=== PATIENT | female | born 1980 | race Hispanic/Latino ===

== ENCOUNTER 2019-09-03 20:35 | Inpatient (IN) | payer OTHER ==
[~2019-09-03] VITALS: Ht 165.1 cm; Wt 103.9 kg
[2019-09-03] MEDS ORDERED: MORPHINE SULFATE 2 MG/ML SYR 1ML IV STA (20:39)
[2019-09-03] MEDS ORDERED: PANTOPRAZOLE 40 MG 10ML VIAL IV STA (20:39)
[2019-09-03] MEDS ORDERED: ONDANSETRON HCL INJ 2MG/ML 2ML 2 MG/ML VIAL IV STA (20:39)
[2019-09-03] MEDS ORDERED: PIPER-TAZ 3.375 GM 50 ML IV STA (20:39)
[2019-09-03] MEDS ORDERED: SODIUM CHLORIDE 0.9% 1000ML 1,000 ML IV ONE (20:45)
[2019-09-03 21:09] LABS: BASOPHILS % 0.2 % (0.0-1.0); EOSINOPHILS % 0.1 % (0.0-6.0); HEMATOCRIT 41.1 % (34.2-44.1); HEMOGLOBIN 13.9 g/dL (12.0-16.0); LYMPHOCYTES # (AUTO) 1.1 (1.0-3.2); LYMPHOCYTES % 12.5 % (18.0-39.1); MEAN CORPUSCULAR HEMOGLOBIN 29.1 pg (28-32); MEAN CORPUSCULAR HGB CONC 33.8 g/dL (31-35); MEAN CORPUSCULAR VOLUME 86.2 fL (81-99); MONOCYTES # (AUTO) 0.6 (0.2-0.8); MONOCYTES % 6.8 % (4.4-11.3); NEUTROPHILS # (AUTO) 6.7 (2.1-6.9); PLATELET COUNT 237 x10e3/uL (140-360); RED BLOOD COUNT 4.77 x10e6/uL (3.6-5.1); RED CELL DISTRIBUTION WIDTH 13.2 % (11.7-14.4)
[2019-09-03 21:15] LABS: CLARITY,URINE CLEAR (CLEAR); COLOR,URINE YELLOW (YELLOW)
[2019-09-03 21:16] LABS: BILIRUBIN,URINE NEGATIVE (NEGATIVE); KETONES,URINE NEGATIVE (NEGATIVE); LEUKOCYTE ESTERASE ,URINE NEGATIVE (NEGATIVE); NITRITE,URINE NEGATIVE (NEGATIVE); PREGNANCY TEST, URINE NEGATIVE (NEGATIVE); PROTEIN,URINE DIPSTICK NEGATIVE (NEGATIVE); URINE UROBILINOGEN 1 mg/dL (0.2 - 1)
[2019-09-03 21:26] LABS: ALANINE AMINOTRANSFERASE 301 IU/L (0-55); ALBUMIN 4.1 g/dL (3.5-5.0); ALBUMIN/GLOBULIN RATIO 1.2 (0.8-2.0); ALKALINE PHOSPHATASE 145 IU/L (40-150); AMYLASE 30 U/L (25-125); ANION GAP 15.8 mmol/L (8-16); BLOOD UREA NITROGEN 12 mg/dL (7-26); BUN/CREATININE RATIO 17 (6-25); CALCIUM 9.2 mg/dL (8.4-10.2); CARBON DIOXIDE 22 mmol/L (22-29); CHLORIDE 103 mmol/L (98-107); CREATININE, SERUM 0.71 mg/dL (0.57-1.11); EST GLOMERULAR FILTRATION RATE > 60 ML/MIN (60-); GLUCOSE 118 mg/dL (74-118); LIPASE 23 U/L (8-78); POTASSIUM 3.8 mmol/L (3.5-5.1); SODIUM 137 mmol/L (136-145)
[2019-09-03 21:38] LABS: BACTERIA,URINE FEW /HPF; EPITHELIAL CELLS,URINE MODERATE /LPF; RBC,URINE 0-5 /HPF (0-5); WBC,URINE (MAN) 0-5 /HPF (0-5)
--- NOTE | 2019-09-03 22:06 | Diagnostic Imaging Report ---
EXAM: Right upper quadrant abdominal ultrasound INDICATION: Right upper quadrant pain COMPARISON: None. TECHNIQUE: Transverse and longitudinal images of the right upper quadrant abdomen were obtained FINDINGS: Liver: Size: 16.5 cm in the right midclavicular line, normal Appearance: Normal echogenicity, smooth contour Mass: No focal masses Gallbladder: The gallbladder wall is thickened, measuring up to 0.6 cm with pericholecystic fluid, cholelithiasis, sludge, and positive reported sonographic Balderas's sign. Bile Ducts: Intrahepatic Ducts: No dilatation Extrahepatic Ducts: Common bile duct measures 0.4 cm, no dilatation Pancreas: Visualized portions of the pancreatic head, neck and proximal body are normal. Kidney: The right kidney measures 10.4 cm without evidence of hydronephrosis or stone. Vessels: Aorta: Visualized portions are normal Inferior Vena Cava: Visualized portions are normal Main Portal Vein: 1.2 cm, normal size with hepatopetal flow. Free Fluid: No evidence of ascites. IMPRESSION: Findings of acute calculus cholecystitis. Signed by: Dr. Linda Clements MD on 09/03/2019 10:03 PM
--- OUTSIDE RECORDS SUMMARY | 2019-09-03 22:47 | XMS REPORT ---
Author Author [facility] Address Unknown Phone Unavailable Care Team Providers Care Communications Professor Name Role Phone Kat GONCALVES Unavailable Unavailable Problems This patient has no known problems. Allergies, Adverse Reactions, Alerts This patient has no known allergies or adverse reactions. Medications This patient has no known medications. Results Test Description Test Time Test Comments Text Results Atomic Results Result Comments GALLBLADDER 2019-09-03 22:00:00 [place] [id number] Patient Name: ALVIN GUTIERREZ MR #: [id number] : 1980 Age/Sex: 39/F Req #: [id number] Adm Physician: Ordered by: EVA GONCALVES MD Report #: [id number] Location: ER Room/Bed: Procedure: [id number] US/US GALLBLADDER Exam Date: 09/03/19 Exam Time: 2112 REPORT STATUS: Signed EXAM: Right upper quadrant abdominal ultrasound INDICATION: Right upper quadrant pain COMPARISON: None. TECHNIQUE: Transverse and longitudinal images of the right upper quadrant abdomen were obtained FINDINGS: Liver: Size: 16.5 cm in the right midclavicular line, normal Appearance: Normal echogenicity, smooth contour Mass: No focal masses Gallbladder: The gallbladder wall is thickened, measuring up to 0.6 cm with pericholecystic fluid, cholelithiasis, sludge, and positive reported sonographic Balderas's sign. Bile Ducts: Intrahepatic Ducts: No dilatation Extrahepatic Ducts: Common bile duct measures 0.4 cm, no dilatation Pancreas: Visualized portions of the pancreatic head, neck and proximal body are normal. Kidney: The right kidney measures 10.4 cm without evidence of hydronephrosis or stone. Vessels: Aorta: Visualized portions are normal Inferior Vena Cava: Visualized portions are normal Main Portal Vein: 1.2 cm, normal size with hepatopetal flow. Free Fluid: No evidence of ascites. IMPRESSION: Findings of acute calculus cholecystitis. Signed by: Dr. Aj Trevino MD on 09/03/2019 10:03 PM Dictated By: AJ TREVINO MD 02 Transcribed By: TESSA on 09/03/192202 COPY TO: EVA GONCALVES MD
[2019-09-04] VITALS (11 sets, daily range): BP systolic 104–131; BP diastolic 58–82
--- NOTE | 2019-09-04 | NUR ---
RECEIVED PATIENT FROM ER. PATIENT IS AAOX4. RESP EVEN AND UNLABORED. NO ACUTE DISTRESS AT THIS TIME. ORIENTED TO ROOM. ASSESSMENT DONE. IV FLUID INFUSING. CALL LIGHT WITHIN REACH. INSTRUCT TO CALL FOR ASSISTANCE. BED LOW/LOCKED. CONTINUE TO MONITOR CLOSELY
[2019-09-04] MEDS: ONDANSETRON HCL INJ 2MG/ML 2ML 2 MG/ML VIAL IV PRN ×3 (01:16→17:25)
[2019-09-04] MEDS: MORPHINE SULFATE INJ 4 MG/ML INJ 1ML IV PRN ×4 (01:16→21:55)
[2019-09-04] MEDS: PIPER-TAZ 3.375 GM / NS 50ML IV SCH ×3 (05:11→22:00)
[2019-09-04 05:15] LABS: BASOPHILS % 0.5 % (0.0-1.0); EOSINOPHILS # (AUTO) 0.1 (0.0-0.4); EOSINOPHILS % 2.3 % (0.0-6.0); HEMATOCRIT 35.9 % (34.2-44.1); LYMPHOCYTES # (AUTO) 1.3 (1.0-3.2); LYMPHOCYTES % 30.4 % (18.0-39.1); MEAN CORPUSCULAR HEMOGLOBIN 28.6 pg (28-32); MEAN CORPUSCULAR HGB CONC 33.4 g/dL (31-35); MEAN CORPUSCULAR VOLUME 85.7 fL (81-99); MONOCYTES # (AUTO) 0.4 (0.2-0.8); MONOCYTES % 9.4 % (4.4-11.3); NEUTROPHILS # (AUTO) 2.5 (2.1-6.9); NEUTROPHILS % 57.2 % (38.7-80.0); PLATELET COUNT 193 x10e3/uL (140-360); RED BLOOD COUNT 4.19 x10e6/uL (3.6-5.1); RED CELL DISTRIBUTION WIDTH 13.2 % (11.7-14.4)
[2019-09-04 05:43] LABS: ALANINE AMINOTRANSFERASE 582 IU/L (0-55); ALBUMIN 3.2 g/dL (3.5-5.0); ALBUMIN/GLOBULIN RATIO 1.1 (0.8-2.0); ALKALINE PHOSPHATASE 149 IU/L (40-150); AMYLASE 33 U/L (25-125); ANION GAP 8.7 mmol/L (8-16); BLOOD UREA NITROGEN 10 mg/dL (7-26); BUN/CREATININE RATIO 17 (6-25); CALCIUM 8.1 mg/dL (8.4-10.2); CARBON DIOXIDE 22 mmol/L (22-29); CHLORIDE 107 mmol/L (98-107); EST GLOMERULAR FILTRATION RATE > 60 ML/MIN (60-); GLUCOSE 103 mg/dL (74-118); LIPASE 37 U/L (8-78); POTASSIUM 3.7 mmol/L (3.5-5.1); SODIUM 134 mmol/L (136-145)
--- NOTE | 2019-09-04 06:18 | NUR ---
PAGED DR GIRON FOR CONSULT
[2019-09-04] MEDS: SODIUM CHLORIDE 0.9% 1000ML 1,000 ML IV SCH ×4 (06:19→22:19)
--- NOTE | 2019-09-04 06:31 | NUR ---
H&P cc: abdominal pain HPI: 39yoF, PCP , developed abdominal pain and N/V, found to have acute cholecystitis. PMH: Obesity PSHx: Csecx2 Allergies: see emr FH/SH; ; no cigs meds; see MAR ROS: no cp/sob/skin rash/back pain/vision changes/AVERY/diarrhea/confusion v/s; revd PE tired appearing anicteric ns1s2 mod bs soft nd; RUQ tender no e/t skin dry n. affect labs/meds revd A/P: 39yoF Acute cholecystitis- sx consult; NPO; ppi Transaminitis- follow Obesity- screen for DM and HLD BMI 38.1- as above Prop: scd; ppi dispo: sx consult Vijaya Olivera MD, PhD.
--- NOTE | 2019-09-04 07:00 | NUR ---
RCD PT AT BED PT IS ALERT AND ORIENTED PT RESTING ON BED PT NPO FOR PROCEDURE IV PATENT AND RUNNING 125 /HR BED LOW AND LOCKED CALL LIGHT IN REACH
[2019-09-04 07:07] LABS: CHOL/HDL RATIO 5.4 (3.0-3.6)
--- NOTE | 2019-09-04 07:10 | NUR ---
RCD PT AT BED PT IS ALERT AND ORIENTED IN 1-3,PT RESTING ON BED NO SIGNS OF ANY DISTRESS NOTED IV PATENT BY SALINE FLUSH BED LOW AND LOCKED CALL LIGHT IN REACH Addendum: 09/04/19 at 1419 by Fernanda Pelletier RN WRONG PATIENT
--- NOTE | 2019-09-04 08:27 | NUR ---
GOT THE TELEPHONE ORDER FROM DR GIRON TAKE THE CONSENT FOR LAPAROSCOPIC CHOLECYSTECTOMY ON TODAY
[2019-09-04] MEDS: PANTOPRAZOLE 40 MG 10ML VIAL IV SCH (09:00)
[2019-09-04] MEDS ORDERED: BUPIVACAINE 0.5%/EPI 30 ML SDV INJ ONE (09:37)
--- NOTE | 2019-09-04 09:40 | NUR ---
PT WENT TO PROCEDURE IN SAFE CONDITION
--- NOTE | 2019-09-04 11:07 | Consultation ---
DATE OF CONSULTATION: 09/04/2019 CHIEF COMPLAINT: Abdominal pain. HISTORY OF PRESENT ILLNESS: This 39-year-old female with 2-day history of pain in epigastric right upper quadrant with nausea. No vomiting. The patient has had previous attacks. No fever, chills, or diarrhea. PAST MEDICAL HISTORY: Unremarkable. ALLERGIES: NO DRUG ALLERGIES. SOCIAL HABITS: No smoking or alcohol abuse. REVIEW OF SYSTEMS: No chest pain, shortness of breath, or cough. PHYSICAL EXAMINATION: VITAL SIGNS: Stable. Afebrile. GENERAL: She is awake, alert, in bscy-ct-ozroyzyx discomfort. HEENT: Sclerae nonicteric. NECK: Supple. LUNGS: Clear. HEART: Regular rate and rhythm. ABDOMEN: Soft with some guarding tenderness in the right upper quadrant without rebound. LABORATORY DATA: White cell count is 4, hemoglobin of 12. Creatinine of 0.6. Liver function tests; elevated transaminase, AST at 824, bilirubin at 1.2. Ultrasound showed gallbladder distention with stones, normal-sized bile duct. ASSESSMENT: Cholelithiasis and probable cholecystitis. PLAN: Laparoscopic cholecystectomy. Attendant risks discussed. Will Dasilva MD DNL/MODL /[id number]
--- NOTE | 2019-09-04 12:00 | NUR ---
PT BACK AFTER PROCEDURE PT IS ALERT AND ORIENTED VITALS CHECKED 4 SITES AND DAVID DRAIN ON RT SIDE ,NO SIGNS OF ANY BLEEDING NOTED BED LOW AND LOCKED CALL LIGHT IN REACH
--- NOTE | 2019-09-04 12:28 | Operative Report ---
DATE OF PROCEDURE: 09/04/2019 SURGEON: Will Dasilva MD PREOPERATIVE DIAGNOSIS: Cholecystitis. POSTOPERATIVE DIAGNOSES: Cholecystitis and cholelithiasis. OPERATIVE PROCEDURE: Laparoscopic cholecystectomy. GARDENER: None. ANESTHESIA: General. INDICATION: A 39-year-old female with 2-day history of pain in epigastric right upper quadrant with gallstones seen on ultrasound. Gallbladder with distention of gallbladder. The patient consented for laparoscopic cholecystectomy. Attendant risks discussed. PROCEDURE FINDINGS: Acute cholecystitis with small gallstone. DESCRIPTION OF PROCEDURE: The patient was brought to the OR, intubated. Abdomen was prepped and draped in sterile fashion. Infraumbilical incision was made and an 11 mm port inserted. Insufflation began under direct vision. Other ports I placed in the epigastric and right upper quadrant. Gallbladder was acutely inflamed and distended. Fundus retracted in cephalad direction. Next, the gallbladder was retracted laterally with blunt and sharp dissection. We isolated the cystic artery, triply clipped and divided. Cystic duct was isolated and the junction of common bile duct was noted. Before triple clipping the cystic duct and divided between clips, the gallbladder was detached from the liver with cautery and taken out through umbilical port site. Operative field irrigated. Hemostasis was achieved. All ports were removed under direct vision. Fascial closure with 0 Vicryl, skin then closed with subcuticular stitch. The patient was extubated and transported to recovery room. Blood loss was 15 mL. Will Dasilva MD DNL/MODL /[id number]
[2019-09-04] MEDS ORDERED: SEVOFLURANE INHAL SOLN 250 ML PEN BTL ONE (14:56)
[2019-09-04] MEDS ORDERED: ROCURONIUM BROMIDE 10 MG/ML 5ML VIAL IV ONE (14:56)
[2019-09-04] MEDS ORDERED: LIDOCAINE HCL 2% LOCAL INJ 5 ML SDV VIAL INJ ONE (14:56)
[2019-09-04] MEDS ORDERED: DEXAMETHASONE SOD PHOS INJ 4 MG/ML VIAL ONE (14:56)
[2019-09-04] MEDS ORDERED: PROPOFOL IV EMULSION 10 MG/ML 20 ML VIAL ONE (14:56)
[2019-09-04] MEDS ORDERED: ONDANSETRON HCL INJ 2MG/ML 2ML 2 MG/ML VIAL ONE (14:56)
--- NOTE | 2019-09-04 15:00 | NUR ---
PT VOIDED AND AMBULATED WITH ASSISTANCE
--- NOTE | 2019-09-04 18:00 | NUR ---
PT RESTING ON BED NO SIGNS OF ANY BLEEDING ON THE SURGERY SITE
--- NOTE | 2019-09-04 18:46 | NUR ---
PT RESTING ON BED BED SIDE REPORT GIVEN TO ONCOMING NURSE
[2019-09-04] MEDS ORDERED: MIDAZOLAM HCL 2 MG/2 ML VIAL ONE (19:29)
[2019-09-04] MEDS ORDERED: FENTANYL CITRATE/PF 100MCG/2 ML INJ ONE (19:29)
[2019-09-05] VITALS (7 sets, daily range): BP systolic 90–112; BP diastolic 53–76
[2019-09-05 05:43] LABS: ALANINE AMINOTRANSFERASE 472 IU/L (0-55); ALBUMIN 3.1 g/dL (3.5-5.0); ALBUMIN/GLOBULIN RATIO 1.1 (0.8-2.0); ALKALINE PHOSPHATASE 156 IU/L (40-150); ANION GAP 9.6 mmol/L (8-16); BLOOD UREA NITROGEN 9 mg/dL (7-26); BUN/CREATININE RATIO 14 (6-25); CALCIUM 8.1 mg/dL (8.4-10.2); CARBON DIOXIDE 21 mmol/L (22-29); CHLORIDE 109 mmol/L (98-107); CREATININE, SERUM 0.64 mg/dL (0.57-1.11); EST GLOMERULAR FILTRATION RATE > 60 ML/MIN (60-); GLUCOSE 102 mg/dL (74-118); POTASSIUM 3.6 mmol/L (3.5-5.1); SODIUM 136 mmol/L (136-145)
[2019-09-05] MEDS: PIPER-TAZ 3.375 GM / NS 50ML IV SCH ×3 (06:00→21:58)
[2019-09-05] MEDS: MORPHINE SULFATE INJ 4 MG/ML INJ 1ML IV PRN (06:00)
[2019-09-05] MEDS: SODIUM CHLORIDE 0.9% 1000ML 1,000 ML IV SCH ×2 (06:19→14:22)
[2019-09-05] MEDS: PANTOPRAZOLE 40 MG 10ML VIAL IV SCH (08:29)
--- NOTE | 2019-09-05 13:25 | NUR ---
informed dr Olivera pt c/o dizziness and lightheaded, orders received to d/c pain medication and observe patient and to call MD at 8pm for discharge orders.
[2019-09-05] MEDS ORDERED: ACETAMINOPHEN 325 MG TAB PO PRN (13:30)
--- NOTE | 2019-09-05 21:11 | NUR ---
D/C summary Principal Dx: Acute cholecystitis- sx consult; NPO; ppi Transaminitis- follow Obesity- screen for DM and HLD BMI 38.1- as above Secondary Dx: Obesity Prop: scd; ppi dispo: sx consult Pt underwent Lap jeri, drain placed then removed, now able to tolerate meds and food; d/c home Pt does not have diabetes. d/c; home stable d/c>35mins f/u pcp 1 week Viajya Olivera MD, PhD.
== END 2019-09-05 22:45 | disposition home or self-care (01) | DRG 419 ==
LOC: ER 20:35 → ERHOLD 22:44 → MED/SURG2 23:22
PROVIDERS: ADMIT Internal Medicine; ATTEND Internal Medicine
PROC: 0FT44ZZ Resection of Gallbladder, Percutaneous Endoscopic Approach (ICD-10-PCS; principal; 2019-09-04 09:00)
DX: K80.00 Calculus of gallbladder with acute cholecystitis without obstruction (principal); E66.9 Obesity, unspecified; Z68.38 Body mass index [BMI] 38.0-38.9, adult; Z83.3 Family history of diabetes mellitus; Z82.49 Family history of ischemic heart disease and other diseases of the circulatory system; R74.0 Nonspecific elevation of levels of transaminase and lactic acid dehydrogenase [LDH]
CPT/HCPCS: 36415; 76705; 80053; 80061; 81001; 81025; 82150; 83036; 83605; 83690; 85025; 87040; 88304; 93005; 99284; J1100; J2001; J2250; J2270; J2405; J2543; J3010; J7030